=== PATIENT | male | born 1955 | race Caucasian/White ===

== ENCOUNTER 2018-11-01 12:50 | Day surgery (SDC) | payer BC ==
[~2018-11-01] VITALS: Ht 193 cm; Wt 96.1 kg
[~2018-11-01 12:50] MED LIST: NS 1,000 ML IV ONE; ROSU20TA4 PO; ZOLP5TAB PO
[2018-11-01] MEDS ORDERED: LIDOCAINE 2% INJ 100 MG/5 ML SDV (FOR ANES.) As Ordered ONE (13:50)
[2018-11-01] MEDS ORDERED: PROPOFOL 200 MG/20 ML VIAL As Ordered ONE ×2 (13:50→14:17)
--- NOTE | 2018-11-01 14:19 | ROOR ---
Patient Name: Curtis May Procedure Date: 11/01/2018 1:57 PM Date of : 1955 Age: 62 Room: [facility] Gender: Male Note Status: Finalized Procedure: Total Colonoscopy to Cecum + ileoscopy Indications: Screening for colorectal malignant neoplasm Providers: Nasir Valdez MD Referring MD: DEE TUBBS JR, MD Requesting Provider: Medicines: Monitored Anesthesia Care Complications: No immediate complications. Procedure: Pre-Anesthesia Assessment: - The heart rate, respiratory rate, oxygen saturations, blood pressure, adequacy of pulmonary ventilation, and response to care were monitored throughout the procedure. The Colonoscope was introduced through the anus and advanced to the cecum, identified by appendiceal orifice and ileocecal valve. The colonoscopy was performed without difficulty. The patient tolerated the procedure well. The quality of the bowel preparation was good. Findings: The perianal and digital rectal examinations were normal. Non-bleeding internal hemorrhoids were found during retroflexion. The hemorrhoids were small and Grade I (internal hemorrhoids that do not prolapse). No other significant abnormalities were identified in a careful examination of the remainder of the colon. The exam was otherwise without abnormality on direct and retroflexion views. The terminal ileum appeared normal. Impression: - Non-bleeding internal hemorrhoids. - The examination was otherwise normal on direct and retroflexion views. - The examined portion of the ileum was normal. - No specimens collected. - The exam was otherwise normal to the cecum. Recommendation: - Patient has a contact number available for emergencies. The signs and symptoms of potential delayed complications were discussed with the patient. Return to normal activities tomorrow. Written discharge instructions were provided to the patient. - High fiber diet. - Discharge patient to home. - Continue present medications. - Repeat colonoscopy in 10 years for screening purposes. - Return to referring physician. - The findings and recommendations were discussed with the patient's family. Nasir Valdez MD Nasir Valdez MD 11/01/2018 2:18:59 PM Electronically signed by Nasir Valdez MD Number of Addenda: 0 Note Initiated On: 11/01/2018 1:57 PM Estimated Blood Loss: Estimated blood loss: none.
[2018-11-01 14:40] VITALS: BP 109/60
== END 2018-11-01 14:49 | disposition home or self-care (01) ==
LOC: M OPP 12:50
PROVIDERS: ATTEND Internal Medicine Gastroenterology
DX: K64.0 First degree hemorrhoids (principal); Z12.11 Encounter for screening for malignant neoplasm of colon

== ENCOUNTER → 2019-01-18 | Outpatient (REF) | payer BC ==
[~2019-01-18] MED LIST changes: +CLIN1GEL3 TOP; +DOXY100T PO; +IBUP-1114 PO; -NS 1,000 ML IV ONE; -ROSU20TA4 PO; +ROSU20TA5 PO
[2019-01-18 17:26] LABS: INFLUENZA A AMPLIFICATION NEGATIVE (NEGATIVE); INFLUENZA B AMPLIFICATION NEGATIVE (NEGATIVE)
[2019-01-21 00:11] LABS: Lyme Disease IgG Ab 18 kDa Ban Absent (.); Lyme Disease IgG Ab 23 kDa Ban Absent (.); Lyme Disease IgG Ab 28 kDa Ban Present (.); Lyme Disease IgG Ab 30 kDa Ban Present (.); Lyme Disease IgG Ab 39 kDa Ban Absent (.); Lyme Disease IgG Ab 41 kDa Ban Present (.); Lyme Disease IgG Ab 45 kDa Ban Present (.); Lyme Disease IgG Ab 58 kDa Ban Absent (.); Lyme Disease IgG Ab 66 kDa Ban Absent (.); Lyme Disease IgG Ab 93 kDa Ban Absent (.); Lyme Disease IgG West Blot Int Negative (.); Lyme Disease IgG/IgM Antibodie 3.29 ISR (0.00-0.90); Lyme Disease IgM Ab 23 kDa Ban Absent (.); Lyme Disease IgM Ab 39 kDa Ban Absent (.); Lyme Disease IgM Ab 41 kDa Ban Absent (.); Lyme Disease IgM Ab Quantitati <0.80 index (0.00-0.79); Lyme Disease IgM West Blot Int Negative (.)
== END ==
LOC: M LAB REF 16:14
PROVIDERS: ATTEND Nurse Practitioner Family
DX: M25.50 Pain in unspecified joint (principal)

== ENCOUNTER 2019-01-20 14:17 | Inpatient (IN) | payer BC ==
[~2019-01-20] VITALS: Ht 193 cm; Wt 97.3 kg
[~2019-01-20 14:17] MED LIST changes: -CLIN1GEL3 TOP; -DOXY100T PO; -IBUP-1114 PO
[2019-01-20] MEDS ORDERED: IBUP-1114 PO (14:28)
[2019-01-20 15:01] LABS: VENOUS BASE EXCESS 2.1 (-2.0-2.0); VENOUS HCO3 26.1 MEQ/L (23.0-27.0); VENOUS O2 SATURATION 96.4 % (60.0-80.0); VENOUS PARTIAL PRESSURE CO2 38.7 mmHg (38.0-50.0); VENOUS PARTIAL PRESSURE O2 83.2 mmHg (30.0-50.0); VENOUS PH 7.446 UNITS (7.330-7.430); VENOUS STANDARD HCO3 26.3 MEQ/L; VENOUS TOTAL CO2 27.2 MEQ/L (24.0-28.0)
[2019-01-20 15:11] LABS: BASO # 0.1 10^3/uL (0.0-0.2); BASO % 0.3 % (0.0-1.0); EOS # 0.2 10^3/uL (0.0-0.50); HEMATOCRIT 43.8 % (42.0-52.0); HEMOGLOBIN 15.3 g/dl (13.5-17.5); LYMPH # 0.3 10^3/uL (1.5-4.5); LYMPH % 1.9 % (24.0-44.0); MEAN CORPUSCULAR HEMOGLOBIN 31.9 pg (27.0-33.0); MEAN CORPUSCULAR HGB CONC 34.9 g/dl (32.0-36.5); MEAN CORPUSCULAR VOLUME 91.4 fl (80.0-96.0); MONO # 0.9 10^3/uL (0.0-0.8); MONO % 5.5 % (0.0-5.0); NEUTROPHILS # 15.4 10^3/uL (1.8-7.7); NEUTROPHILS % 90.7 % (36.0-66.0); PLATELET COUNT, AUTOMATED 169 10^3/uL (150-450); RED BLOOD COUNT 4.79 10^6/uL (4.30-6.10); WHITE BLOOD COUNT 16.9 10^3/uL (4.0-10.0)
[2019-01-20] MEDS ORDERED: NS 1,000 ML IV ONE ×2 (15:15→15:30)
[2019-01-20 15:20] LABS: INR 1.16; PROTHROMBIN TIME 14.5 SECONDS (11.8-14.0)
[2019-01-20 15:21] LABS: PARTIAL THROMBOPLASTIN TIME 28.9 SECONDS (25.0-38.4)
[2019-01-20 15:28] LABS: ALBUMIN 3.6 GM/DL (3.2-5.2); ALT/SGPT 95 U/L (12-78); AMYLASE 13 U/L (25-115); BILIRUBIN,DIRECT 0.3 MG/DL (0.0-0.2); BILIRUBIN,TOTAL 0.9 MG/DL (0.2-1.0); BLOOD UREA NITROGEN 26 MG/DL (7-18); CALCIUM LEVEL 8.5 MG/DL (8.8-10.2); CARBON DIOXIDE LEVEL 26 MEQ/L (21-32); CHLORIDE LEVEL 101 MEQ/L (98-107); CK-MB VALUE MASS < 1.0 NG/ML (<3.6); CPK CREATINE PHOSPHOKINASE 33 U/L (39-308); CREATININE FOR GFR 1.01 MG/DL (0.70-1.30); GLOMERULAR FILTRATION RATE > 60.0 (>49); GLUCOSE, FASTING 135 MG/DL (70-100); MB/CK RELATIVE INDEX 3.03 (< OR =4); POTASSIUM SERUM 3.8 MEQ/L (3.5-5.1); SODIUM LEVEL 137 MEQ/L (136-145); TOTAL PROTEIN 6.5 GM/DL (6.4-8.2); TROPONIN I < 0.02 NG/ML (< 0.10)
[2019-01-20] MEDS ORDERED: cefTRIAXone SOD 2 GM in D5W MINI-BAG PLUS 50 ML IV ONE (15:30)
[2019-01-20] MEDS ORDERED: CLIN1GEL3 TOP (15:39)
--- NOTE | 2019-01-20 15:52 | REP ---
CHEST, SINGLE VIEW: There is no evidence of acute infiltrate. No pleural effusion is seen. The heart is normal in size. The mediastinal silhouette is unremarkable. The visualized osseous structures are intact. IMPRESSION: No acute pulmonary disease. Electronically Signed by Mario Alberto Dugan MD 01/21/2019 09:27 A
[2019-01-20] MEDS ORDERED: ONDANSETRON 4MG/2ML VIAL (J2405) IV ONE (17:45)
[2019-01-20] MEDS ORDERED: zolPIDEM TARTRATE 5 MG TAB PO PRN (18:15)
--- NOTE | 2019-01-20 18:22 | HPEPDOC ---
General Date of Admission 01/20/19 Date of Service: Jan 20, 2019 Chief Complaint The patient is a 63-year-old male admitted with a reason for visit of Vomiting, Blood Pressure Problem. History of Present Illness 63-year-old male with past medical history significant for dyslipidemia presented to the ER with a chief complaint of intractable nausea and vomiting over the last 3 days. He states that during this time he has been unable to keep any food down due to the nausea. Denies eating or drinking any foreign foods, sick contacts, or recent travel. He also endorses associated subjective fevers and chills. He also states that he has been working in the [employer], but has done so for many years without incident, and denies noticing any recent tick bites. Also of note, the patient states that he has had a generalized non-itchy non- painful body rash that erupted around the same time. He endorses generalized body aches but denied any headaches or neck aches on admission. Home Medications Scheduled Rosuvastatin Calcium (Rosuvastatin Calcium) 20 Mg Tab, 10 MG PO QHS, (Reported) Scheduled PRN Clindamycin Phosphate (Clindagel) 75 Ml Gel.daily, 1 APLCT TOP BID PRN for HEAT RASH, (Reported) APPLY TO LEGS Ibuprofen (Ibuprofen) 400 Mg Tablet, 400 MG PO Q4H PRN for PAIN, (Reported) Zolpidem Tartrate (Zolpidem Tartrate) 5 Mg Tab, 5 MG PO QHS PRN for SLEEP, (Reported) Allergies Coded Allergies: No Known Allergies (Unverified , 10/25/18) Past Medical History Medical History As noted in HPI. Surgical History Right Achilles tendon repair. Left rotator cuff repair. Social History * Smoker: Denies Alcohol: occationally Drugs: denies Review of Systems Other systems 10 point review of systems negative unless otherwise specified in HPI. Physical Examination General Exam: Positive: Alert, Cooperative, No Acute Distress ENT Exam: Positive: Atraumatic; Negative: Mucous membr. moist/pink (dry mucous membranes) Neck Exam: Negative: JVD Chest Exam: Positive: Clear to auscultation, Normal air movement Heart Exam: Positive: Rate Normal, Normal S1, Normal S2 Abdomen Exam: Positive: Soft; Negative: Tenderness Extremity Exam: Negative: Tenderness, Swelling Skin Exam: Positive: Rash (generalized papular, non-itchy, not painful rash noted on trunk, extremities, arms, and back) Psych Exam: Positive: Oriented x 3 Vital Signs Vital Signs Date Time Temp Pulse Resp B/P (MAP) Pulse Ox O2 Delivery O2 Flow Rate FiO2 01/20/19 17:02 01/20/19 14:18 97.1 91 20 91 Room Air Laboratory Data Labs 24H Laboratory Tests 2 01/20/19 14:42: Immature Granulocyte % (Auto) 0.6, White Blood Count 16.9H, Red Blood Count 4 .79, Hemoglobin 15.3, Hematocrit 43.8, Mean Corpuscular Volume 91.4, Mean Corpuscular Hemoglobin 31.9, Mean Corpuscular Hemoglobin Concent 34.9, Red Cell Distribution Width 12.6, Platelet Count 169, Neutrophils (%) (Auto) 90.7H, Lymphocytes (%) (Auto) 1.9L, Monocytes (%) (Auto) 5.5H, Eosinophils (%) (Auto) 1.0, Basophils (%) (Auto) 0.3, Neutrophils # (Auto) 15.4H, Lymphocytes # (Auto) 0.3L, Monocytes # (Auto) 0.9H, Eosinophils # (Auto) 0.2, Basophils # (Auto) 0.1, Nucleated Red Blood Cells % (auto) 0.0, Prothrombin Time 14.5H, Prothromb Time International Ratio 1.16, Activated Partial Thromboplast Time 28.9, Blood Gas Bicarbonate Standard 26.3, Venous Blood pH 7.446H, Venous Blood Partial Pressure CO2 38.7, Venous Blood Partial Pressure O2 83.2H, Venous Blood Total Carbon Dioxide 27.2, Venous Blood HCO3 26.1, Venous Blood Oxygen Saturation 96.4H, Venous Blood Base Excess 2.1H, Anion Gap 10, Glomerular Filtration Rate > 60.0, Lactic Acid Level 1.4, Calcium Level 8.5L, Aspartate Amino Transf (AST/SGOT) 7, Alanine Aminotransferase (ALT/SGPT) 95H, Alkaline Phosphatase 119H, Total Bilirubin 0.9, Direct Bilirubin 0.3H, Total Creatine Kinase 33L, Creatine Kinase MB < 1.0, Creatine Kinase MB Relative Index 3.03, Troponin I < 0.02, C-Reactive Protein, Quantitative 18.30H, Total Protein 6.5, Albumin 3.6, Albumin/Globulin Ratio 1.24, Amylase Level 13L CBC/BMP Laboratory Tests 01/20/19 14:42 Red Blood Count 4.79, Mean Corpuscular Volume 91.4, Mean Corpuscular Hemoglobin 31.9, Mean Corpuscular Hemoglobin Concent 34.9, Red Cell Distribution Width 12.6, Neutrophils (%) (Auto) 90.7 H, Lymphocytes (%) (Auto) 1.9 L, Monocytes (%) (Auto) 5.5 H, Eosinophils (%) (Auto) 1.0, Basophils (%) (Auto) 0.3, Neutrophils # (Auto) 15.4 H, Lymphocytes # (Auto) 0.3 L, Monocytes # (Auto) 0.9 H, Eosinophils # (Auto) 0.2, Basophils # (Auto) 0.1 Microbiology Microbiology 01/20/19 Blood Culture, Received Pending 01/20/19 Blood Culture, Received Pending Plan / VTE VTE Prophylaxis Ordered?: Yes Plan Plan Intractable Nausea anmd Vomiting possibly 2/2 ?Viral Gastroenteritis CT Abd/Pel ordered IVF Hydration ordered Zofran for nausea We will keep on clear liquid diet for now We will cont to monitor Generalized Maculopapular Body Rash Possibly of viral prodrome? We will continue to monitor at this time, and investigate further. Hx of Dyslipidemia Cont Statin Hx of Insomnia Zolpidem prn DVT Prophylaxis Lovenox XI RANDLE MD Jan 20, 2019 18:22
--- NOTE | 2019-01-20 18:45 | REPVR ---
EXAM: CT Abdomen and Pelvis Without Contrast EXAM DATE/TIME: 01/20/2019 6:10 PM CLINICAL HISTORY: 63 years old, male; Nausea and vomiting; Additional info: Nausea/vomiting TECHNIQUE: Imaging protocol: Axial computed tomography images of the abdomen and pelvis without contrast. Coronal and sagittal reformatted images were created and reviewed. Radiation optimization: All CT scans at this facility use at least one of these dose optimization techniques: automated exposure control; mA and/or kV adjustment per patient size (includes targeted exams where dose is matched to clinical indication); or iterative reconstruction. COMPARISON: No relevant prior studies available. FINDINGS: Lungs: There is bibasilar compressive atelectasis. Liver: There are cysts in the liver measuring up to 2 cm. No complex features demonstrated. Gallbladder and bile ducts: Normal. No calcified stones. No ductal dilation. Pancreas: Normal. No ductal dilation. Spleen: There is mild splenomegaly with a maximum span of 13 centimeters. No focal abnormalities demonstrated. Adrenals: Normal. No mass. Kidneys and ureters: Subcentimeter nonobstructing calculus upper pole left kidney. Peripelvic cysts both kidneys. Mild perinephric inflammatory changes on the left. Clinical correlation to exclude pyelonephritis suggested. Stomach and bowel: Normal. No obstruction. No mucosal thickening. Appendix: No evidence of appendicitis. Intraperitoneal space: Normal. No free air. No significant fluid collection. Vasculature: The aorta demonstrates mild atherosclerotic calcification. Lymph nodes: Normal. No enlarged lymph nodes. Bladder: Unremarkable as visualized. Reproductive: The prostate gland demonstrates moderate hyperplasia. Bones/joints: No acute fracture. No dislocation. Soft tissues: Unremarkable. IMPRESSION: 1. There is mild splenomegaly with a maximum span of 13 centimeters. No focal abnormalities demonstrated. 2. Moderate prostatic hyperplasia. 3. Mild perinephric inflammatory changes on the left. Clinical correlation to exclude pyelonephritis suggested. COMMENT: Consistent with the [place] [employer]'s Incidental Findings Committee Report (J Am Doc Radiol 2010): Unless the patient's specific circumstances suggest otherwise, any liver lesion 0.5 cm or less, any cystic kidney lesion less than 1.0 cm, and/or any adrenal lesion 1.0 cm or less not otherwise characterized in this report as possessing suspicious or indeterminate imaging features is/are highly likely to be benign and do not require follow-up imaging or biopsy. Electronically signed by: Lam Herring On 01/20/2019 18:44:55 PM
[2019-01-20] MEDS: NS 1,000 ML IV SCH (18:47)
[2019-01-20] MEDS: ROSUVASTATIN 10 MG TAB (CRESTOR) PO SCH (21:17)
[2019-01-20] MEDS: ACETAMINOPHEN TAB 650MG DOSE (2X325MG) PO PRN (22:08)
[2019-01-21] MEDS ORDERED: METAL LOCK LOOP XX ONE (02:40)
[2019-01-21] MEDS: ACETAMINOPHEN TAB 650MG DOSE (2X325MG) PO PRN ×4 (03:24→20:09)
[2019-01-21] MEDS: NS 1,000 ML IV SCH ×2 (04:02→16:23)
[2019-01-21 06:55] LABS: HEMATOCRIT 38.2 % (42.0-52.0); MEAN CORPUSCULAR HEMOGLOBIN 31.9 pg (27.0-33.0); MEAN CORPUSCULAR HGB CONC 33.8 g/dl (32.0-36.5); MEAN CORPUSCULAR VOLUME 94.6 fl (80.0-96.0); PLATELET COUNT, AUTOMATED 154 10^3/uL (150-450); RED BLOOD COUNT 4.04 10^6/uL (4.30-6.10); WHITE BLOOD COUNT 11.1 10^3/uL (4.0-10.0)
[2019-01-21 07:00] LABS: HEMOGLOBIN 12.9 g/dl (13.5-17.5)
[2019-01-21 07:19] LABS: ALBUMIN 2.6 GM/DL (3.2-5.2); ALT/SGPT 61 U/L (12-78); BILIRUBIN,TOTAL 0.5 MG/DL (0.2-1.0); BLOOD UREA NITROGEN 20 MG/DL (7-18); CALCIUM LEVEL 8.1 MG/DL (8.8-10.2); CARBON DIOXIDE LEVEL 29 MEQ/L (21-32); CHLORIDE LEVEL 104 MEQ/L (98-107); CREATININE FOR GFR 0.83 MG/DL (0.70-1.30); GLOMERULAR FILTRATION RATE > 60.0 (>49); GLUCOSE, FASTING 117 MG/DL (70-100); MAGNESIUM LEVEL 2.1 MG/DL (1.8-2.4); POTASSIUM SERUM 3.9 MEQ/L (3.5-5.1); SODIUM LEVEL 138 MEQ/L (136-145); TOTAL PROTEIN 5.2 GM/DL (6.4-8.2)
[2019-01-21 09:00] VITALS: BP 108/62
[2019-01-21] MEDS: PANTOPRAZOLE 40MG TAB (PROTONIX) PO SCH (09:00)
[2019-01-21] MEDS: ENOXAPARIN 40 MG/0.4 ML SYRINGE (J1650) SC SCH (09:43)
[2019-01-21 10:16] LABS: APPEARANCE, URINE HAZY (CLEAR); BACTERIA, URINE AUTO NEGATIVE (NEGATIVE); BILIRUBIN, URINE AUTO NEGATIVE (NEGATIVE); BLOOD, URINE BLOOD NEGATIVE (NEGATIVE); COLOR, URINE AMBER (YELLOW); GLUCOSE, URINE (UA) AUTO NEGATIVE (NEGATIVE); KETONE, URINE AUTO 1+ mg/dL (NEGATIVE); LEUKOCYTE ESTERASE, URINE AUTO NEGATIVE (NEGATIVE); MUCUS, URINE SMALL (NEGATIVE); NITRITE, URINE AUTO NEGATIVE (NEGATIVE); PROTEIN, URINE AUTO 1+ mg/dL (NEGATIVE); RBC, URINE AUTO 5 /HPF (0-3); SPECIFIC GRAVITY URINE AUTO 1.032 (1.002-1.035); SQUAMOUS EPITHELIAL CELL UR AU 0 /HPF (0-6); WBC, URINE AUTO 5 /HPF (0-3)
[2019-01-21 12:00] VITALS: BP 103/60
[2019-01-21] MEDS: ONDANSETRON 4MG/2ML VIAL (J2405) IV PRN ×2 (13:04→19:03)
--- NOTE | 2019-01-21 13:53 | REP ---
CT HEAD WITHOUT CONTRAST: HISTORY: Headache. There is no intraparenchymal hemorrhage, mass, or midline shift. The ventricular system is normal in appearance. There is no extracerebral collection. The visualized sinuses are clear. IMPRESSION: There is no intracranial lesion. Electronically Signed by Raffaele Combs MD 01/21/2019 02:03 P
[2019-01-21 14:00] VITALS: BP_SYST 103; BP_SYST 164; BP_DIAS 60; BP_DIAS 83
[2019-01-21 14:11] LABS: MONO SCRN NEGATIVE (NEGATIVE)
[2019-01-21] MEDS ORDERED: LIDOCAINE 1% MDV 20ML VIAL As Ordered ONE (14:13)
[2019-01-21] MEDS ORDERED: LIDOCAINE 1% MDV 20ML VIAL SC ONE ×2 (14:15→14:30)
--- NOTE | 2019-01-21 15:07 | IPNPDOC ---
Subjective Date Seen The patient was seen on 01/21/19. Subjective Chief Complaint/HPI Patient seen and examined at the bedside. Reports that he has been having headaches and neck aches this morning as well as continued nausea and chills. The patient also endorses generalized weakness and lethargy. States that he was able to tolerate some clear liquids overnight and this morning. Objective Physical Examination General Exam: Positive: Alert, Cooperative, No Acute Distress ENT Exam: Positive: Atraumatic; Negative: Mucous membr. moist/pink (dry mucous membranes) Neck Exam: Negative: JVD Chest Exam: Positive: Clear to auscultation, Normal air movement Heart Exam: Positive: Rate Normal, Normal S1, Normal S2 Abdomen Exam: Positive: Soft; Negative: Tenderness Extremity Exam: Negative: Tenderness, Swelling Skin Exam: Positive: Rash (generalized maculopapular, non-itchy, not painful rash noted on trunk, extremities, arms, and back) Psych Exam: Positive: Oriented x 3 Assessment /Plan Plan/VTE VTE Prophylaxis Ordered?: Yes Plan Fevers, Headache, and Neck Pain possibly 2/2 Meningitis Patient endorsed new onset neck pains this morning-->Ct Head ordered, negative for any acute findings Lumbar Puncture ordered to r/o meningitis Blood cultures from admission pending Respiratory panel, Monoscreen,Strep-throat studies pending, Lyme Screen, Ehrlichia, Babesia, and Arbovirus studies ordered The patient's WBC and CRP markers are improved from overnight, however the patient is febrile this morning Rn Transition support appreciated for Lumbar Tap---Dr. Timmons was able to discuss the case with Dr. Elder of ID via telephone, and we will follow up with the aforementioned work up that was recommended, and start the patient on Rocephin and Dexamethasone for now. We will consider adding Vanco/Ampicillin depending on CSF results. We will follow up with CSF results and manage accordingly. Generalized Maculopapular Body Rash possibly 2/2 Above We will continue to monitor at this time, and curtail therapy based on above results Hx of Dyslipidemia Cont Statin Hx of Insomnia Zolpidem prn DVT Prophylaxis Lovenox SC VS, I&O, 24H, Fishbone Vital Signs/I&O Vital Signs Date Time Temp Pulse Resp B/P (MAP) Pulse Ox O2 Delivery O2 Flow Rate FiO2 01/21/19 14:00 100.1 86 18 103/60 (74) 92 01/21/19 07:45 Room Air I&O- Last 24 Hours up to 6 AM 01/21/19 06:00 Intake Total 4000 ml Output Total 0 ml Balance 4000 ml Laboratory Data 24H LABS Laboratory Tests 2 01/21/19 06:28: Nucleated Red Blood Cells % (auto) 0.0, Anion Gap 5L, Glomerular Filtration Rate > 60.0, Blood Urea Nitrogen 20H, Creatinine 0.83, Sodium Level 138, Potassium Level 3.9, Chloride Level 104, Carbon Dioxide Level 29, Calcium Level 8.1L, Aspartate Amino Transf (AST/SGOT) 10, Alanine Aminotransferase (ALT/SGPT) 61, Alkaline Phosphatase 77, Total Bilirubin 0.5, Total Protein 5.2L, Albumin 2.6#L, Magnesium Level 2.1, C-Reactive Protein, Quantitative 12.00H, Albumin/Globulin Ratio 1.00 01/21/19 09:45: Urine Appearance HAZY, Urine Color ROSA, Urine pH 5.0, Urine Specific Butler 1.032, Urine Protein 1+H, Urine Glucose (UA) NEGATIVE, Urine Ketones 1+H, Urine Urobilinogen 4.0H, Urine Bilirubin NEGATIVE, Urine Leukocyte Esterase NEGATIVE, Urine Blood NEGATIVE, Urine Nitrite NEGATIVE, Urine WBC (Auto) 5H, Urine RBC (Auto) 5H, Urine Hyaline Casts (Auto) 0, Urine Bacteria (Auto) NEGATIVE, Urine Squamous Epithelial Cells 0, Urine Mucus (Auto) SMALL, Urine Sperm (Auto) 01/21/19 13:16: Monoscreen NEGATIVE CBC/BMP Laboratory Tests 01/21/19 06:28 Red Blood Count 4.04 L, Mean Corpuscular Volume 94.6, Mean Corpuscular Hemoglobin 31.9, Mean Corpuscular Hemoglobin Concent 33.8, Red Cell Distribution Width 12.5, Calcium Level 8.1 L, Aspartate Amino Transf (AST/SGOT) 10, Alanine Aminotransferase (ALT/SGPT) 61, Alkaline Phosphatase 77, Total Bilirubin 0.5, Total Protein 5.2 L, Albumin 2.6 #L Microbiology Microbiology 01/20/19 Blood Culture, Received Pending 01/20/19 Blood Culture - Preliminary, Resulted No growth after 24 hours . All specim... 01/21/19 Respiratory Virus Panel (PCR) (AYDIN), Received Pending 01/20/19 Group A Streptococcus Screen (AYDIN) - Final, Complete 01/21/19 Urine Culture, Received Pending XI PRETTY MD Jan 21, 2019 15:07
[2019-01-21 15:38] LABS: CSF TUBE# GLU TUBE 2; CSF TUBE# TP TUBE 2; GLUCOSE CSF 60 MG/DL (40-75); TOTAL PROTEIN,CSF 34 MG/DL (15-45)
[2019-01-21 15:40] LABS: APPEARANCE, CSF CLEAR (CLEAR); COLOR, CSF COLORLESS (COLORLESS); CSF TUBE# CELL CNT TUBE 1; CSF TUBE# CELL CNT TUBE 4
[2019-01-21] MEDS: cefTRIAXone SOD 2 GM in D5W MINI-BAG PLUS 50 ML IV SCH (16:19)
[2019-01-21] MEDS ORDERED: KETOROLAC 30 MG/ML VIAL (J1885) IV ONE (19:00)
[2019-01-21] MEDS: dexameTHASONE 20 MG/5 ML VIAL (J1100) IV SCH (19:02)
--- NOTE | 2019-01-21 20:01 | CR ---
DATE OF CONSULTATION: 01/21/2019 HISTORY OF PRESENT ILLNESS: The patient is a 63-year-old male with a past medical history of hyperlipidemia, history of previous Lyme disease who presented to the emergency department (ED) with complaints of fevers, myalgias and nausea and vomiting for the past three days. The patient reported his symptoms initially started with generalized myalgias, headaches and neck stiffness. He was noted to have fevers with a maximum temperature (T-max) at home of 101. The patient then noticed development of a diffuse erythematous maculopapular rash which was nonpruritic. The patient then started developing nausea, vomiting, and had decreased oral intake. He denied any abdominal pain during this and has not had any diarrhea. He did not notice any chest pain. No shortness of breath or coughing initially; however, after being admitted to the hospital, he has started to have an occasional nonproductive cough which is worse with deep inspiration. The patient denied any recent travel or sick contacts. He does frequently work outdoors but denies noticing any recent tick bites. He does have a previous history of Lyme disease, however, which was reportedly treated. The patient does also frequently swim in [facility] and he does have a dock with various plants and bushes around. He also will fish frequently and will occasionally injury his hands/fingers on the fish. He denies noticing any recent injury except for a scabbed abrasion in his right lower extremity with some mild erythema around it. He otherwise denies any other new lesions besides the rash. The patient also denies any recent contact with any rodents or other wildlife such as deer. The patient does not have any birds but does have a dog as a pet. PAST MEDICAL AND SURGICAL HISTORY: 1. Hyperlipidemia. 2. Right Achilles tendon repair. 3. Left rotator cuff repair. 4. Lyme disease, status post treatment. HOME MEDICATIONS: Rosuvastatin, clindamycin as needed for heat rash, ibuprofen as needed for fever, Zolpidem as needed for insomnia. ALLERGIES: No known allergies. SOCIAL HISTORY: Denies a history of tobacco use. Drinks alcohol occasionally. Denies history of drug use. PHYSICAL EXAMINATION: Maximum temperature (T-max) 100.1, pulse 86, respirations 18, blood pressure 103/60, oxygen saturation 92% on room air. INTAKE: 4 liters normal saline bolus. GENERAL: The patient is a well-nourished, well-developed male lying in bed, in no acute distress, is awake, alert and oriented times three, and responding to questions appropriately. HEENT: Normocephalic, atraumatic. Mucous membranes are moist. No oral lesions noted. NECK: Supple. No palpable adenopathy. Trachea is midline. CARDIOVASCULAR: Regular rate and rhythm. Normal S1, S2. No murmurs auscultated. LUNGS: Crackles at the bases bilaterally. No wheezes or rhonchi. ABDOMEN: Soft, nontender, nondistended. Normoactive bowel sounds. LOWER EXTREMITIES: There is no lower extremity edema noted bilaterally. Peripheral pulses are palpable. Negative Brudzinski and Kernig sign. SKIN: Generalized maculopapular rash noted on chest, back and the extremities. No rash noted on the palms. The rash is nonpruritic. LABORATORY DATA: WBC of 11.1, hemoglobin 12.9, platelets 154. Chemistry: Sodium is 138, potassium 3.9, chloride 104, bicarbonate 29, BUN 20, creatinine 0.83, glucose is 117, lactic acid is 1.7. Amylase is within normal limits. CRP is elevated but trending down at 12.0. AST ant ALT within normal limits, alkaline phosphatase trending down to 77, INR 1.16. VBG showed a pH of 7.446. MICROBIOLOGY: UA negative. Cultures are pending. IMAGING STUDIES: Chest x-ray showed increased interstitial markings at the bases. No focal opacities or infiltrates. CT abdomen and pelvis shows at the lungs, there are some dependent changes in the lung rice bilaterally with atelectasis and possible mild ground-glass opacity in the lower lobes bilaterally. There is some faint nodular tree and bud opacities in the lingula in the right middle lobe. In the abdomen, there are cysts in the liver measuring up to 2 cm. No complex features noted. There is mild splenomegaly and a moderate hyperstatic hyperplasia. There is some mild perinephric inflammation changes in the left kidney. CT head showed no intraparenchymal hemorrhage, mass or midline shift. The ventricular system appeared normal. ASSESSMENT AND PLAN: Mr. May is a 63-year male with a history of hyperlipidemia, previous history of Lyme disease status post treatment who presented with fevers, myalgia, nausea, vomiting, and a new maculopapular rash. The patient had reported headaches as well as neck pain during all of this and was noted to have a leukocytosis on admission. The patient's urinalysis (UA) was negative for infection. His chest x-ray showed some mild increased interstitial markings at the bases but no focal opacities to suggest pneumonia. His CT abdomen and pelvis also did not show any focal findings to suggest a gastrointestinal (GI) source of infection. Therefore given his complaints of headache and some neck stiffness as well as with the diffuse rash, there is some concern for meningitis, possibly viral or arthropod-borne encephalitis. Bacterial meningitis is less likely as on examination he did not have severe nuchal rigidity, but only possible meningismus. Other possible differentials include arthropod-borne illnesses such as erlichiosis, babesiosis, rickettsia. The patient's rash is not entirely consistent with [place] spotted fever as it is not involving the palms or the soles currently but that is still a possibility for possible tick-borne disease. The patient was consented for a lumbar puncture. The patient was started on empiric antibiotics for a suspicion of possible bacterial meningitis, although less likely with Rocephin and dexamethasone pending the results of the cerebrospinal fluid (CSF) fluid cell count. If it appears more likely for bacterial meningitis would add vancomycin and ampicillin. If it appears to be possible viral meningitis would consider adding empiric therapy with acyclovir while pending the viral studies from the CSF. We will check a respiratory panel and Streptococcus throat studies. We will also check Lyme screen, erlishiosis, babesiosis, and arbovirus. We will followup the results of the viral meningitis panel as well. Follow- up blood cultures. Would continue with IV fluid hydration and medications for nausea as needed. The patient was noted to have some atelectasis on imaging as well as on examination. Would give incentive spirometer and encourage its usage. Deep vein thrombosis (DVT) prophylaxis with Lovenox. Full code. Total critical care time spent, not including procedures, approximately one hour and 20 minutes. Please do not hesitate to call if any further questions or concerns. MTDD
[2019-01-21] MEDS: ROSUVASTATIN 10 MG TAB (CRESTOR) PO SCH (20:09)
[2019-01-21 22:00] VITALS: BP 121/59
--- NOTE | 2019-01-21 23:16 | RO ---
DATE OF PROCEDURE: 01/21/2019 INDICATION Suspected meningitis. PREPROCEDURE DIAGNOSIS: Sepsis. POSTPROCEDURE DIAGNOSIS: Sepsis. PROCEDURE: Lumbar puncture. SURGEON: Preethi Timmons MD CONSENT: Consent was obtained from the patient prior to the procedure. Indication, risks and benefits were explained at length. DESCRIPTION OF PROCEDURE: A time-out was performed. Sterile technique was maintained throughout the procedure, including face mask, sterile gloves and sterile gown. The patient was placed in a left lateral decubitus position with a curl. The area was cleansed with iodine and draped in the usual sterile fashion. Anesthesia which was achieved with 1% lidocaine. A 20-gauge 3.5-inch spinal needle was placed in the L4-5 lumbar interspace. On the first attempt, clear-colored cerebrospinal fluid was obtained. The opening pressure was 23 cm of water. Cerebrospinal fluid (CSF) was collected into four tubes and additional 3 mL was collected into a sterile specimen container. These were sent for the usual tests, including the sterile specimen container to be held for further analysis if needed. A sterile Band-Aid was placed over the puncture site. The patient had no immediate complications and tolerated the procedure well. Estimated blood loss was less than 1 mL. MTDD
[2019-01-22] MEDS: ONDANSETRON 4MG/2ML VIAL (J2405) IV PRN (01:17)
[2019-01-22] MEDS: dexameTHASONE 20 MG/5 ML VIAL (J1100) IV SCH ×2 (01:18→06:40)
[2019-01-22] MEDS: ACETAMINOPHEN TAB 650MG DOSE (2X325MG) PO PRN ×4 (01:19→21:59)
[2019-01-22] MEDS: NS 1,000 ML IV SCH ×4 (01:19→19:03)
[2019-01-22] MEDS: cefTRIAXone SOD 2 GM in D5W MINI-BAG PLUS 50 ML IV SCH (04:50)
[2019-01-22 06:00] VITALS: BP 112/59
[2019-01-22 06:49] LABS: HEMATOCRIT 38.4 % (42.0-52.0); HEMOGLOBIN 12.9 g/dl (13.5-17.5); MEAN CORPUSCULAR HEMOGLOBIN 31.8 pg (27.0-33.0); MEAN CORPUSCULAR HGB CONC 33.6 g/dl (32.0-36.5); MEAN CORPUSCULAR VOLUME 94.6 fl (80.0-96.0); PLATELET COUNT, AUTOMATED 167 10^3/uL (150-450); RED BLOOD COUNT 4.06 10^6/uL (4.30-6.10); WHITE BLOOD COUNT 6.9 10^3/uL (4.0-10.0)
[2019-01-22 07:05] LABS: ALBUMIN 2.5 GM/DL (3.2-5.2); ALT/SGPT 48 U/L (12-78); BILIRUBIN,TOTAL 0.3 MG/DL (0.2-1.0); BLOOD UREA NITROGEN 18 MG/DL (7-18); CALCIUM LEVEL 8.1 MG/DL (8.8-10.2); CARBON DIOXIDE LEVEL 28 MEQ/L (21-32); CHLORIDE LEVEL 107 MEQ/L (98-107); CREATININE FOR GFR 0.75 MG/DL (0.70-1.30); GLOMERULAR FILTRATION RATE > 60.0 (>49); GLUCOSE, FASTING 149 MG/DL (70-100); MAGNESIUM LEVEL 2.2 MG/DL (1.8-2.4); SODIUM LEVEL 141 MEQ/L (136-145); TOTAL PROTEIN 5.6 GM/DL (6.4-8.2)
--- NOTE | 2019-01-22 07:46 | ECGEPIP ---
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
[2019-01-22] MEDS: ENOXAPARIN 40 MG/0.4 ML SYRINGE (J1650) SC SCH (08:42)
[2019-01-22] MEDS: PANTOPRAZOLE 40MG TAB (PROTONIX) PO SCH (08:42)
[2019-01-22] MEDS: DOXYCYCLINE HYCLATE 100 MG TAB PO SCH ×2 (12:09→21:36)
[2019-01-22 14:00] VITALS: BP 101/72
--- NOTE | 2019-01-22 14:05 | IPNPDOC ---
Subjective Date Seen The patient was seen on 01/22/19. Subjective Chief Complaint/HPI Patient seen and examined at the bedside. Reports that he is feeling much better this morning, and denies any acute complaints of nausea, vomiting, or abdominal pain. Objective Physical Examination General Exam: Positive: Alert, Cooperative, No Acute Distress ENT Exam: Positive: Atraumatic, Mucous membr. moist/pink Neck Exam: Negative: JVD Chest Exam: Positive: Clear to auscultation, Normal air movement Heart Exam: Positive: Rate Normal, Normal S1, Normal S2 Abdomen Exam: Positive: Soft; Negative: Tenderness Extremity Exam: Negative: Tenderness, Swelling Skin Exam: Positive: Rash (generalized maculopapular, non-itchy, not painful rash noted on trunk, extremities, arms, and back---this does appear to be improving) Psych Exam: Positive: Oriented x 3 Assessment /Plan Plan/VTE VTE Prophylaxis Ordered?: Yes Plan Fevers, Headache, and Neck Pain possibly 2/2 Viral Etiology, Tick borne illness Lumbar Puncture negative for meningitis Blood cultures from admission unrevealing Respiratory panel, Monoscreen,Strep-throat studies negative Lyme Screen, Ehrlichia, Babesia, and Arbovirus studies ordered The patient's WBC and CRP markers are improved from overnight, and the patient is afebrile this morning He endorses that he is feeling much better this morning We will D/C Rocephin and Decadron, we will transition the patient to PO Doxycycline to empirically treat possible tick borne illness Generalized Maculopapular Body Rash possibly 2/2 Above This is improved, we will cont to monitor Hx of Dyslipidemia Cont Statin Hx of Insomnia Zolpidem prn DVT Prophylaxis Lovenox SC Dispo--anticipate D/C in 24-48hrs pending continued clinical improvement. VS, I&O, 24H, Hectorbone Vital Signs/I&O Vital Signs Date Time Temp Pulse Resp B/P (MAP) Pulse Ox O2 Delivery O2 Flow Rate FiO2 01/22/19 06:00 98.1 66 19 112/59 (76) 98 01/21/19 07:45 Room Air I&O- Last 24 Hours up to 6 AM 01/22/19 05:59 Intake Total 2345 ml Balance 2345 ml Laboratory Data 24H LABS Laboratory Tests 2 01/21/19 14:59: CSF Appearance CLEAR, CSF Color COLORLESS, CSF WBC (Auto) 1, CSF RBC (Auto) < 2, CSF Glucose (Tube 1) TUBE 2, CSF Total Protein (Tube 1) TUBE 2, CSF Cell Count Tube # TUBE 4, CSF Polynuclear WBCs (%) , CSF Glucose 60, CSF Total Protein 34 01/22/19 06:09: Nucleated Red Blood Cells % (auto) 0.0, Anion Gap 6L, Glomerular Filtration Rate > 60.0, Blood Urea Nitrogen 18, Creatinine 0.75, Sodium Level 141, Potassium Level 4.0, Chloride Level 107, Carbon Dioxide Level 28, Calcium Level 8.1L, Aspartate Amino Transf (AST/SGOT) < 3L, Alanine Aminotransferase (ALT/SGPT) 48, Alkaline Phosphatase 69, Total Bilirubin 0.3, Total Protein 5.6L, Albumin 2.5L, Magnesium Level 2.2, C-Reactive Protein, Quantitative 10.90H, Albumin/Globulin Ratio 0.81L CBC/BMP Laboratory Tests 01/22/19 06:09 Red Blood Count 4.06 L, Mean Corpuscular Volume 94.6, Mean Corpuscular Hemogl obin 31.8, Mean Corpuscular Hemoglobin Concent 33.6, Red Cell Distribution Width 12.4, Calcium Level 8.1 L, Aspartate Amino Transf (AST/SGOT) < 3 L, Alanine Aminotransferase (ALT/SGPT) 48, Alkaline Phosphatase 69, Total Bilirubin 0.3, Total Protein 5.6 L, Albumin 2.5 L Microbiology Microbiology 01/20/19 Blood Culture - Preliminary, Resulted No growth after 24 hours . All specim... 01/20/19 Blood Culture - Preliminary, Resulted No growth after 24 hours . All specim... 01/21/19 Gram Stain - Final, Resulted 01/21/19 CSF Culture, Resulted Pending 01/21/19 - Final, Complete 01/21/19 Respiratory Virus Panel (PCR) ([facility]) - Final, Complete 01/20/19 Group A Streptococcus Screen ([facility]) - Final, Complete 01/21/19 Urine Culture - Final, Complete XI PRETTY MD Jan 22, 2019 14:05
[2019-01-22] MEDS: ROSUVASTATIN 10 MG TAB (CRESTOR) PO SCH (21:36)
[2019-01-22 22:00] VITALS: BP 118/60
[2019-01-23 06:00] VITALS: BP 105/55
[2019-01-23 06:07] LABS: HEMATOCRIT 34.1 % (42.0-52.0); HEMOGLOBIN 11.6 g/dl (13.5-17.5); MEAN CORPUSCULAR VOLUME 93.9 fl (80.0-96.0); PLATELET COUNT, AUTOMATED 186 10^3/uL (150-450); RED BLOOD COUNT 3.63 10^6/uL (4.30-6.10); WHITE BLOOD COUNT 13.2 10^3/uL (4.0-10.0)
[2019-01-23 06:29] LABS: ALBUMIN 2.3 GM/DL (3.2-5.2); ALT/SGPT 45 U/L (12-78); BILIRUBIN,TOTAL 0.2 MG/DL (0.2-1.0); BLOOD UREA NITROGEN 18 MG/DL (7-18); CALCIUM LEVEL 7.9 MG/DL (8.8-10.2); CARBON DIOXIDE LEVEL 28 MEQ/L (21-32); CHLORIDE LEVEL 109 MEQ/L (98-107); GLOMERULAR FILTRATION RATE > 60.0 (>49); GLUCOSE, FASTING 118 MG/DL (70-100); POTASSIUM SERUM 3.7 MEQ/L (3.5-5.1); SODIUM LEVEL 143 MEQ/L (136-145); TOTAL PROTEIN 5.4 GM/DL (6.4-8.2)
[2019-01-23] MEDS: ENOXAPARIN 40 MG/0.4 ML SYRINGE (J1650) SC SCH (08:06)
[2019-01-23] MEDS: ACETAMINOPHEN TAB 650MG DOSE (2X325MG) PO PRN ×2 (08:06→20:35)
[2019-01-23] MEDS: DOXYCYCLINE HYCLATE 100 MG TAB PO SCH ×2 (08:06→20:37)
[2019-01-23] MEDS: PANTOPRAZOLE 40MG TAB (PROTONIX) PO SCH (08:06)
[2019-01-23 08:13] LABS: C REACTIVE PROTEIN QUANTITATIV 5.03 MG/DL (0.00-0.30)
--- NOTE | 2019-01-23 12:13 | IPNPDOC ---
Subjective Date Seen The patient was seen on 01/23/19. Subjective Chief Complaint/HPI Patient seen and examined at the bedside. Reports that he had a relatively uneventful night. States that he did have a bout of night sweats for about 1 hour, but this completely resolved. He reports tolerating a by mouth diet without any complaints, and denies any nausea/vomiting/diarrhea. He states that he has been ambulating in the hallways without any acute issues. Objective Physical Examination General Exam: Positive: Alert, Cooperative, No Acute Distress ENT Exam: Positive: Atraumatic, Mucous membr. moist/pink Neck Exam: Negative: JVD Chest Exam: Positive: Clear to auscultation, Normal air movement Heart Exam: Positive: Rate Normal, Normal S1, Normal S2 Abdomen Exam: Positive: Soft; Negative: Tenderness Extremity Exam: Negative: Tenderness, Swelling Skin Exam: Positive: Rash (generalized maculopapular, non-itchy, not painful r andrey noted on trunk, extremities, arms, and back---this does appear to be significantly improving compared to admission) Psych Exam: Positive: Oriented x 3 Assessment /Plan Plan/VTE VTE Prophylaxis Ordered?: Yes Plan Fevers, Headache, and Neck Pain possibly 2/2 Viral Etiology, Tick borne illness Lumbar Puncture negative for meningitis Blood cultures from admission unrevealing Respiratory panel, Monoscreen,Strep-throat studies negative Lyme Screen, Ehrlichia, Babesia, RMSF, and Arbovirus studies ordered The patient reports he continues to feel better at this time. However the patient was noted to have a elevation of his white blood cell count this morning, in addition, he does endorse that he had an episode of night sweats that lasted about one hour The patient's CRP markers are improved from overnight, and the patient is afebrile this morning Continue doxycycline empirically for now We will consult infectious diseases tomorrow for further evaluation. Generalized Maculopapular Body Rash possibly 2/2 Above This is significantly improved, we will cont to monitor Hx of Dyslipidemia Cont Statin Hx of Insomnia Zolpidem prn DVT Prophylaxis Lovenox SC VS, I&O, 24H, Fishbone Vital Signs/I&O Vital Signs Date Time Temp Pulse Resp B/P (MAP) Pulse Ox O2 Delivery O2 Flow Rate FiO2 01/23/19 06:00 98.2 55 15 105/55 (72) 98 01/21/19 07:45 Room Air I&O- Last 24 Hours up to 6 AM 01/23/19 06:00 Intake Total 3156 ml Output Total 0 ml Balance 3156 ml Laboratory Data 24H LABS Laboratory Tests 2 01/23/19 05:55: Nucleated Red Blood Cells % (auto) 0.0, Anion Gap 6L, Glomerular Filtration Rate > 60.0, Blood Urea Nitrogen 18, Creatinine 0.80, Sodium Level 143, Potassium Level 3.7, Chloride Level 109H, Carbon Dioxide Level 28, Calcium Level 7.9L, Aspartate Amino Transf (AST/SGOT) 11, Alanine Aminotransferase (ALT/SGPT) 45, Alkaline Phosphatase 63, Total Bilirubin 0.2, Total Protein 5.4L, Albumin 2.3L, Magnesium Level 2.0, C-Reactive Protein, Quantitative 5.03H, Albumin/Globulin Ratio 0.74L CBC/BMP Laboratory Tests 01/23/19 05:55 Red Blood Count 3.63 L, Mean Corpuscular Volume 93.9, Mean Corpuscular Hemoglobin 32.0, Mean Corpuscular Hemoglobin Concent 34.0, Red Cell Distribution Width 12.4, Calcium Level 7.9 L, Aspartate Amino Transf (AST/SGOT) 11, Alanine Aminotransferase (ALT/SGPT) 45, Alkaline Phosphatase 63, Total Bilirubin 0.2, Total Protein 5.4 L, Albumin 2.3 L Microbiology Microbiology 01/20/19 Blood Culture - Preliminary, Resulted No Growth after 48 hours. All Specime... 01/20/19 Blood Culture - Preliminary, Resulted No Growth after 48 hours. All Specime... 01/21/19 Gram Stain - Final, Resulted 01/21/19 CSF Culture, Resulted Pending 01/21/19 - Final, Complete 01/21/19 Respiratory Virus Panel (PCR) ([facility]) - Final, Complete 01/20/19 Group A Streptococcus Screen ([facility]) - Final, Complete 01/21/19 Urine Culture - Final, Complete XI PRETTY MD Jan 23, 2019 12:13
[2019-01-23 14:00] VITALS: BP 109/71
[2019-01-23] MEDS: ROSUVASTATIN 10 MG TAB (CRESTOR) PO SCH (20:36)
[2019-01-23] MEDS ORDERED: MOM 30ML SUSPENSION UDC PO ONE (21:00)
[2019-01-23] MEDS ORDERED: guaiFENesin SYRUP 200 MG/10 ML UDC PO PRN (21:00)
[2019-01-23 22:00] VITALS: BP 108/68
[2019-01-24] MEDS: ACETAMINOPHEN TAB 650MG DOSE (2X325MG) PO PRN ×4 (05:16→17:56)
[2019-01-24 06:00] VITALS: BP 110/70
[2019-01-24 06:16] LABS: HEMATOCRIT 37.9 % (42.0-52.0); HEMOGLOBIN 13.1 g/dl (13.5-17.5); MEAN CORPUSCULAR HEMOGLOBIN 31.1 pg (27.0-33.0); MEAN CORPUSCULAR HGB CONC 34.6 g/dl (32.0-36.5); PLATELET COUNT, AUTOMATED 273 10^3/uL (150-450); RED BLOOD COUNT 4.21 10^6/uL (4.30-6.10); WHITE BLOOD COUNT 12.1 10^3/uL (4.0-10.0)
[2019-01-24 06:48] LABS: ALBUMIN 2.7 GM/DL (3.2-5.2); ALT/SGPT 58 U/L (12-78); BILIRUBIN,TOTAL 0.4 MG/DL (0.2-1.0); BLOOD UREA NITROGEN 13 MG/DL (7-18); CARBON DIOXIDE LEVEL 29 MEQ/L (21-32); CHLORIDE LEVEL 105 MEQ/L (98-107); CREATININE FOR GFR 0.81 MG/DL (0.70-1.30); GLOMERULAR FILTRATION RATE > 60.0 (>49); GLUCOSE, FASTING 98 MG/DL (70-100); POTASSIUM SERUM 3.5 MEQ/L (3.5-5.1); SODIUM LEVEL 140 MEQ/L (136-145); TOTAL PROTEIN 6.3 GM/DL (6.4-8.2)
[2019-01-24 08:22] LABS: C REACTIVE PROTEIN QUANTITATIV 3.16 MG/DL (0.00-0.30)
[2019-01-24] MEDS: DOXYCYCLINE HYCLATE 100 MG TAB PO SCH (08:58)
[2019-01-24] MEDS: PANTOPRAZOLE 40MG TAB (PROTONIX) PO SCH (08:58)
[2019-01-24] MEDS: ENOXAPARIN 40 MG/0.4 ML SYRINGE (J1650) SC SCH (08:58)
[2019-01-24 14:00] VITALS: BP 123/72
--- NOTE | 2019-01-24 14:05 | IPNPDOC ---
Subjective Date Seen The patient was seen on 01/24/19. Subjective Chief Complaint/HPI Patient continues to report headaches and generalized malaise this morning. However, he has remained afebrile and his white blood cell count is trending downward. Denies any nausea, vomiting, abdominal pain, or any diarrhea. Objective Physical Examination General Exam: Positive: Alert, Cooperative, No Acute Distress ENT Exam: Positive: Atraumatic, Mucous membr. moist/pink Neck Exam: Negative: JVD Chest Exam: Positive: Clear to auscultation, Normal air movement Heart Exam: Positive: Rate Normal, Normal S1, Normal S2 Abdomen Exam: Positive: Soft; Negative: Tenderness Extremity Exam: Negative: Tenderness, Swelling Skin Exam: Positive: Rash (generalized maculopapular, non-itchy, not painful rash noted on trunk, extremities, arms, and back---this does appear to be significantly improving compared to admission) Psych Exam: Positive: Oriented x 3 Assessment /Plan Plan/VTE VTE Prophylaxis Ordered?: Yes Plan Fevers, Headache, and Neck Pain possibly 2/2 Viral Etiology, Tick borne illness Lumbar Puncture negative for meningitis Blood cultures from admission unrevealing Respiratory panel, Monoscreen,Strep-throat studies negative Lyme Screen, Ehrlichia, Babesia, RMSF, and Arbovirus studies ordered The patient reports he continues to feel better at this time. The patient's CRP markers are improved from overnight, and the patient is afebrile this morning Continue doxycycline empirically for now Infectious diseases consulted for further evaluation---anticipate D/C pending any further ID workup and continued clinical improvement. Generalized Maculopapular Body Rash possibly 2/2 Above This is significantly improved, we will cont to monitor Hx of Dyslipidemia Cont Statin Hx of Insomnia Zolpidem prn DVT Prophylaxis Lovenox SC VS, I&O, 24H, Fishbone Vital Signs/I&O Vital Signs Date Time Temp Pulse Resp B/P (MAP) Pulse Ox O2 Delivery O2 Flow Rate FiO2 01/24/19 06:00 98.0 66 16 110/70 (83) 98 01/21/19 07:45 Room Air I&O- Last 24 Hours up to 6 AM 01/24/19 05:59 Intake Total 2125 ml Output Total 0 ml Balance 2125 ml Laboratory Data 24H LABS Laboratory Tests 2 01/24/19 05:52: Nucleated Red Blood Cells % (auto) 0.0, Anion Gap 6L, Glomerular Filtration Rate > 60.0, Blood Urea Nitrogen 13, Creatinine 0.81, Sodium Level 140, Potassium Level 3.5, Chloride Level 105, Carbon Dioxide Level 29, Calcium Level 8.0L, Aspartate Amino Transf (AST/SGOT) 17, Alanine Aminotransferase (ALT/SGPT) 58, Alkaline Phosphatase 84, Total Bilirubin 0.4#, Total Protein 6.3L, Albumin 2.7L, Magnesium Level 2.0, C-Reactive Protein, Quantitative 3.16H, Albumin/Globulin Ratio 0.75L CBC/BMP Laboratory Tests 01/24/19 05:52 Red Blood Count 4.21 L, Mean Corpuscular Volume 90.0, Mean Corpuscular Hemoglobin 31.1, Mean Corpuscular Hemoglobin Concent 34.6, Red Cell Distribution Width 12.4, Calcium Level 8.0 L, Aspartate Amino Transf (AST/SGOT) 17, Alanine Aminotransferase (ALT/SGPT) 58, Alkaline Phosphatase 84, Total Bilirubin 0.4 #, Total Protein 6.3 L, Albumin 2.7 L Microbiology Microbiology 01/20/19 Blood Culture - Preliminary, Resulted No Growth after 72 hours. All specime... 01/20/19 Blood Culture - Preliminary, Resulted No Growth after 72 hours. All specime... 01/21/19 Gram Stain - Final, Complete 01/21/19 CSF Culture - Final, Complete 01/21/19 - Final, Complete 01/21/19 Respiratory Virus Panel (PCR) ([facility]) - Final, Complete 01/20/19 Group A Streptococcus Screen ([facility]) - Final, Complete 01/21/19 Urine Culture - Final, Complete XI PRETTY MD Jan 24, 2019 14:05
[2019-01-24] MEDS ORDERED: DOXY100T PO (17:49)
--- NOTE | 2019-01-24 17:54 | DS.PDOC ---
Discharge Summary General Date of Admission Jan 20, 2019 at 18:10 Date of Discharge 01/24/19 Specialist/Consultants Involve Dr. Timmons of ICU, Dr. Elder of ID Discharge Summary PROCEDURES PERFORMED DURING STAY: Lumbar Puncture on 01/21/[address] Timmons of ICU ADMITTING/DISCHARGE DIAGNOSES: Fevers, Chills, Myalgia's and Diffuse Maculopapular Rash possibly 2/2 Tick Borne Illness, Viral Etiology COMPLICATIONS/CHIEF COMPLAINT: Intractable Nausea And Vomiting. HISTORY OF PRESENT ILLNESS: . 63-year-old male with past medical history significant for dyslipidemia presented to the ER with a chief complaint of intractable nausea and vomiting over the last 3 days. He states that during this time he has been unable to keep any food down due to the nausea. Denies eating or drinking any foreign foods, sick contacts, or recent travel. He also endorses associated subjective fevers and chills. He also states that he has been working in the [employer], but has done so for many years without incident, and denies noticing any recent tick bites. Also of note, the patient states that he has had a generalized non-itchy non- painful body rash that erupted around the same time. He endorses generalized body aches but denied any headaches or neck aches on admission. Fevers, Headache, and Neck Pain possibly 2/2 Viral Etiology, Tick borne illness Lumbar Puncture negative for meningitis Blood cultures from admission unrevealing Respiratory panel, Monoscreen,Strep-throat studies negative Lyme Screen, Ehrlichia, Babesia, RMSF, West Nile Virus, and Arbovirus studies ordered The patient reports he continues to feel better at this time. The patient's CRP markers are improved from overnight, and the patient is afebrile this morning Infectious diseases input appreciated-->We will D/C the patient on PO Doxycycline and have him follow up as an outpatient for the aforementioned studies. Generalized Maculopapular Body Rash possibly 2/2 Above This is significantly improved, cont to monitor, F/U as outpatient Hx of Dyslipidemia Cont Statin Hx of Insomnia Zolpidem prn DISCHARGE MEDICATIONS: Please see below. ALLERGIES: Please see below. PHYSICAL EXAMINATION ON DISCHARGE: VITAL SIGNS: Please see below. General Exam: Positive: Alert, Cooperative, No Acute Distress ENT Exam: Positive: Atraumatic, Mucous membr. moist/pink Neck Exam: Negative: JVD Chest Exam: Positive: Clear to auscultation, Normal air movement Heart Exam: Positive: Rate Normal, Normal S1, Normal S2 Abdomen Exam: Positive: Soft; Negative: Tenderness Extremity Exam: Negative: Tenderness, Swelling Skin Exam: Positive: Rash (generalized maculopapular, non-itchy, not painful rash noted on trunk, extremities, arms, and back---this does appear to be significantly improving compared to admission) Psych Exam: Positive: Oriented x 3 LABORATORY DATA: Please see below. IMAGING: EXAM: CT Abdomen and Pelvis Without Contrast EXAM DATE/TIME: 01/20/2019 6:10 PM CLINICAL HISTORY: 63 years old, male; Nausea and vomiting; Additional info: Nausea/vomiting TECHNIQUE: Imaging protocol: Axial computed tomography images of the abdomen and pelvis without contrast. Coronal and sagittal reformatted images were created and reviewed. Radiation optimization: All CT scans at this facility use at least one of these dose optimization techniques: automated exposure control; mA and/or kV adjustment per patient size (includes targeted exams where dose is matched to clinical indication); or iterative reconstruction. COMPARISON: No relevant prior studies available. FINDINGS: Lungs: There is bibasilar compressive atelectasis. Liver: There are cysts in the liver measuring up to 2 cm. No complex features demonstrated. Gallbladder and bile ducts: Normal. No calcified stones. No ductal dilation. Pancreas: Normal. No ductal dilation. Spleen: There is mild splenomegaly with a maximum span of 13 centimeters. No focal abnormalities demonstrated. Adrenals: Normal. No mass. Kidneys and ureters: Subcentimeter nonobstructing calculus upper pole left kidney. Peripelvic cysts both kidneys. Mild perinephric inflammatory changes on the left. Clinical correlation to exclude pyelonephritis suggested. Stomach and bowel: Normal. No obstruction. No mucosal thickening. Appendix: No evidence of appendicitis. Intraperitoneal space: Normal. No free air. No significant fluid collection. Vasculature: The aorta demonstrates mild atherosclerotic calcification. Lymph nodes: Normal. No enlarged lymph nodes. Bladder: Unremarkable as visualized. Reproductive: The prostate gland demonstrates moderate hyperplasia. Bones/joints: No acute fracture. No dislocation. Soft tissues: Unremarkable. IMPRESSION: 1. There is mild splenomegaly with a maximum span of 13 centimeters. No focal abnormalities demonstrated. 2. Moderate prostatic hyperplasia. 3. Mild perinephric inflammatory changes on the left. Clinical correlation to exclude pyelonephritis suggested. COMMENT: Consistent with the [employer]'s Incidental Findings Committee Report (J Am Doc Radiol 2010): Unless the patient's specific circumstances suggest otherwise, any liver lesion 0.5 cm or less, any cystic kidney lesion less than 1.0 cm, and/or any adrenal lesion 1.0 cm or less not otherwise characterized in this report as possessing suspicious or indeterminate imaging features is/are highly likely to be benign and do not require follow-up imaging or biopsy. CHEST, SINGLE VIEW: There is no evidence of acute infiltrate. No pleural effusion is seen. The heart is normal in size. The mediastinal silhouette is unremarkable. The visualized osseous structures are intact. IMPRESSION: No acute pulmonary disease. CT HEAD WITHOUT CONTRAST: HISTORY: Headache. There is no intraparenchymal hemorrhage, mass, or midline shift. The ventricular system is normal in appearance. There is no extracerebral collection. The visualized sinuses are clear. IMPRESSION: There is no intracranial lesion. PROGNOSIS: Fair ACTIVITY: As tolerated. DIET: As tolerated DISCHARGE PLAN: DISPOSITION: . Home DISCHARGE INSTRUCTIONS: Follow-up with primary care physician within 7 days. Return to the ER for any acute emergencies. DISCHARGE CONDITION: Stable. TIME SPENT ON DISCHARGE: Greater than 30 minutes. Vital Signs/I&Os Vital Signs Date Time Temp Pulse Resp B/P (MAP) Pulse Ox O2 Delivery O2 Flow Rate FiO2 01/24/19 14:00 98.3 73 18 123/72 (89) 95 01/21/19 07:45 Room Air I&O- Last 24 Hours up to 6 AM 01/24/19 06:00 Intake Total 1750 ml Output Total 0 ml Balance 1750 ml Laboratory Data Labs 24H Laboratory Tests 2 01/24/19 05:52: Nucleated Red Blood Cells % (auto) 0.0, Anion Gap 6L, Glomerular Filtration Rate > 60.0, Blood Urea Nitrogen 13, Creatinine 0.81, Sodium Level 140, Potassium Level 3.5, Chloride Level 105, Carbon Dioxide Level 29, Calcium Level 8.0L, Aspartate Amino Transf (AST/SGOT) 17, Alanine Aminotransferase (ALT/SGPT) 58, Alkaline Phosphatase 84, Total Bilirubin 0.4#, Total Protein 6.3L, Albumin 2.7L, Magnesium Level 2.0, C-Reactive Protein, Quantitative 3.16H, Albumin/Globulin Ratio 0.75L CBC/BMP Laboratory Tests 01/24/19 05:52 Red Blood Count 4.21 L, Mean Corpuscular Volume 90.0, Mean Corpuscular Hemoglobin 31.1, Mean Corpuscular Hemoglobin Concent 34.6, Red Cell Distribution Width 12.4, Calcium Level 8.0 L, Aspartate Amino Transf (AST/SGOT) 17, Alanine Aminotransferase (ALT/SGPT) 58, Alkaline Phosphatase 84, Total Bilirubin 0.4 #, Total Protein 6.3 L, Albumin 2.7 L Microbiology Microbiology 01/20/19 Blood Culture - Preliminary, Resulted No Growth after 72 hours. All specime... 01/20/19 Blood Culture - Preliminary, Resulted No Growth after 72 hours. All specime... 01/21/19 Gram Stain - Final, Complete 01/21/19 CSF Culture - Final, Complete 01/21/19 - Final, Complete 01/21/19 Respiratory Virus Panel (PCR) ([facility]) - Final, Complete 01/20/19 Group A Streptococcus Screen ([facility]) - Final, Complete 01/21/19 Urine Culture - Final, Complete Discharge Medications Scheduled Doxycycline Hyclate (Doxycycline Hyclate) 100 Mg Tablet, 100 MG PO BID Rosuvastatin Calcium (Rosuvastatin Calcium) 20 Mg Tab, 10 MG PO QHS, (Reported) Scheduled PRN Clindamycin Phosphate (Clindagel) 75 Ml Gel.daily, 1 APLCT TOP BID PRN for HEAT RASH, (Reported) APPLY TO LEGS Ibuprofen (Ibuprofen) 400 Mg Tablet, 400 MG PO Q4H PRN for PAIN, (Reported) Zolpidem Tartrate (Zolpidem Tartrate) 5 Mg Tab, 5 MG PO QHS PRN for SLEEP, (Reported) Allergies Coded Allergies: No Known Allergies (Unverified , 10/25/18) XI PRETTY MD Jan 24, 2019 17:54
--- NOTE | 2019-01-25 10:38 | CR ---
DATE OF CONSULTATION: 01/24/2019 I ws asked to consult by Dr. Green for evaluation of a fever in a rash. HISTORY OF PRESENT ILLNESS Mr. Acevedo is a pleasant 63-year-old gentleman who was admitted to the hospital on January 20 after he had been sick for about 3 days prior to admission. It all started with fever, headache and not feeling well with a flu-like illness body aches. 48 hours later he developed nausea and vomiting. His headache got worse. He could he also then developed a rash that started around his neck and spread down to his abdomen and legs. The rash was nonpruritic or erythematous diffuse maculopapular associated with ulcerations of his tongue. He was admitted on 01/20/2019 since he had worsening headache and lumbar puncture was done which was negative for meningitis. He initially was treated with IV Rocephin from 01/20 to 01/22, which was discontinued 48 hours later. He was started on doxycycline for possibly tick-borne illnesses. On 01/22 his temperature was initially 100.1 with a white count of 16,000 today his white count is 12,000, CRP went from 18-3.16. The patient is feeling much better but concerned about the fact that he has a persistent rash. PAST MEDICAL HISTORY: His past medical history is significant for Lyme disease in [address] Cabrera with a Lyme serology of 4.54 and positive Western blot hyperlipidemia on rosuvastatin no recent medication change. PAST SURGICAL HISTORY: Right Achilles tendon repair. SOCIAL HISTORY: He is . He lives with his Emma Andres who is a real estate transaction manager. 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 He had been in [place] last [place]. He lives in [place] in the summer. He walks in the park with his dog and he also hunts. He has been in touch with duck and chicken that he uses for hunting without good hand hygiene. ALLERGIES: NO KNOWN DRUG ALLERGIES. MEDICATIONS: Robitussin as needed, doxycycline 100 mg by mouth twice a day, currently day #3, Lovenox 40 mg subcu daily, Protonix 40 mg by mouth daily, Crestor 10 mg by mouth at bedtime, Tylenol as needed. Chest x-ray done on 01/20 showed no acute pulmonary disease. CT abdomen and pelvis done without contrast was non revealing. There is mild splenomegaly with maximum span of 13 cm. Moderate prostatic hyperplasia and mild perinephric changes to the left side. PET CT shows no intracranial lesions. Blood cultures two sets were negative. Respiratory panel was negative. Urine culture was negative. Group A strep was negative. CSF PCR was negative by a fire CSF culture was negative. CSF white cells 1, glucose 60, total protein 34 Anaplasma, Lyme, paronychia PCR all pending. West Nile serology pending. [place] screen negative, Rickettsia antibody pending. Urinalysis had five white cells five red cells. PT 14.5, PTT 28.9. PHYSICAL EXAMINATION: He is a healthy looking gentleman in no acute distress covered with a rash. Temperature is 98.3, pulse 73 feet, respiratory rate 18, blood pressure 123/72, O2 sat 95% on room air. Neck is supple. No stiffness. No adenopathy. Oropharynx is clear with no lesion. No thrush. No ulcerations. Pupils are equal, round and reactive, anicteric. No conjunctival lesions. Heart: Normal S1-S2. No murmurs, rubs or gallops. Lungs are clear. No wheezes or rhonchi. Abdomen: Soft, nontender. No visceromegaly. Extremities: No clubbing, cyanosis or edema. No calf tenderness. Skin: Has diffuse maculopapular rash from the neck down to the legs some of it is blanching all a lot of it is confluent. There is no vasculitic lesions. Neck is supple with no meningismus. Neurologic: Exam normal. IMPRESSION: This is a an 63-year-old gentleman who was admitted with flu-like illness headache, meningismus negative lumbar puncture for meningitis who has clinically improved after he has been on IV Rocephin and by mouth doxycycline. His presentation is consistent with either a viral illness or tick borne illness, possibly a Lyme disease as he has a positive serology of 3.29, but only 4 out of 10 positive IgG or other coinfections such as a Anaplasma usually would be associated with pancytopenia and not a rash. Other mosquito born illnesses are would be West Nile virus or other viral illnesses. PLAN: Continue with doxycycline. Currently he is day #2 would suggest giving him a 14-day course until he sees me in the office. I agree with current workup including Anaplasma Babesia Ehrlichia PCR I have added also West Nile virus serology IgM and IgG. The patient could be discharged home today and to follow up in my office in 1 week.
[2019-01-26 14:12] LABS: WEST NILE VIRUS ANTIBODY IgG Negative (Negative); WEST NILE VIRUS ANTIBODY IgM Negative (Negative)
[2019-01-27 08:05] LABS: ROCKY MTN SPOTTED FEVER IgM 0.28 index (0.00-0.89)
[2019-02-02 00:06] LABS: BABESIA MICROTI PCR Negative (Negative); Lyme Disease IgG Ab 18 kDa Ban Absent (.); Lyme Disease IgG Ab 23 kDa Ban Absent (.); Lyme Disease IgG Ab 28 kDa Ban Absent (.); Lyme Disease IgG Ab 30 kDa Ban Present (.); Lyme Disease IgG Ab 39 kDa Ban Absent (.); Lyme Disease IgG Ab 41 kDa Ban Present (.); Lyme Disease IgG Ab 45 kDa Ban Present (.); Lyme Disease IgG Ab 58 kDa Ban Absent (.); Lyme Disease IgG Ab 66 kDa Ban Absent (.); Lyme Disease IgG Ab 93 kDa Ban Absent (.); Lyme Disease IgG West Blot Int Negative (.); Lyme Disease IgG/IgM Antibodie 2.77 ISR (0.00-0.90); Lyme Disease IgM Ab 23 kDa Ban Absent (.); Lyme Disease IgM Ab 39 kDa Ban Absent (.); Lyme Disease IgM Ab 41 kDa Ban Absent (.); Lyme Disease IgM Ab Quantitati <0.80 index (0.00-0.79); Lyme Disease IgM West Blot Int Negative (.)
== END 2019-01-24 18:55 | disposition home or self-care (01) | DRG 50 ==
LOC: M ED 14:17 → M ED INP 18:10 → M MSPAV 01-21 09:06
PROVIDERS: ADMIT Internal Medicine; ATTEND Internal Medicine
PROC: 009U3ZX Drainage of Spinal Canal, Percutaneous Approach, Diagnostic (ICD-10-PCS; principal; 2019-01-21)
DX: A84.8 Other tick-borne viral encephalitis (principal); E78.5 Hyperlipidemia, unspecified; R21 Rash and other nonspecific skin eruption; G47.00 Insomnia, unspecified; Z79.899 Other long term (current) drug therapy

== ENCOUNTER → 2019-01-28 | Outpatient (REF) | payer BC ==
[~2019-01-28] MED LIST changes: +CLIN1GEL3 TOP; +DOXY100T PO; +IBUP-1114 PO
[2019-01-28 13:32] LABS: C REACTIVE PROTEIN QUANTITATIV 3.44 MG/DL (0.00-0.30); EOSINOPHILS 12 % (0-5); LYMPHOCYTES 20 % (16-52); MONOCYTES 3 % (0-8); NEUTROPHILS 62 % (35-75)
[2019-01-28 13:33] LABS: PLATELET ESTIMATE NORMAL (NORMAL)
[2019-01-28 13:36] LABS: MONO SCRN NEGATIVE (NEGATIVE)
== END ==
LOC: M LAB REF 12:45
PROVIDERS: ATTEND Internal Medicine
DX: R50.9 Fever, unspecified (principal); R53.81 Other malaise; E86.0 Dehydration

== ENCOUNTER → 2020-04-11 | Outpatient (REF) | payer BC ==
[2020-04-11 18:19] LABS: APPEARANCE, URINE CLEAR (CLEAR); BACTERIA, URINE AUTO NEGATIVE (NEGATIVE); BILIRUBIN, URINE AUTO NEGATIVE (NEGATIVE); BLOOD, URINE BLOOD NEGATIVE (NEGATIVE); COLOR, URINE YELLOW (YELLOW); GLUCOSE, URINE (UA) AUTO NEGATIVE (NEGATIVE); KETONE, URINE AUTO NEGATIVE (NEGATIVE); LEUKOCYTE ESTERASE, URINE AUTO NEGATIVE (NEGATIVE); MUCUS, URINE SMALL (NEGATIVE); NITRITE, URINE AUTO NEGATIVE (NEGATIVE); PROTEIN, URINE AUTO NEGATIVE (NEGATIVE); RBC, URINE AUTO 2 /HPF (0-3); SQUAMOUS EPITHELIAL CELL UR AU 0 /HPF (0-6); UROBILINOGEN, URINE AUTO 0.2 mg/dL (0.0-2.0); WBC, URINE AUTO 1 /HPF (0-3)
== END ==
LOC: M LAB REF 16:46
PROVIDERS: ATTEND Internal Medicine
DX: Z01.818 Encounter for other preprocedural examination (principal)

== ENCOUNTER → 2020-06-11 | Outpatient (REF) | payer BC ==
[2020-06-11 17:27] LABS: APPEARANCE, URINE CLEAR (CLEAR); BACTERIA, URINE AUTO NEGATIVE (NEGATIVE); BILIRUBIN, URINE AUTO NEGATIVE (NEGATIVE); BLOOD, URINE BLOOD NEGATIVE (NEGATIVE); COLOR, URINE STRAW (YELLOW); GLUCOSE, URINE (UA) AUTO NEGATIVE (NEGATIVE); KETONE, URINE AUTO NEGATIVE (NEGATIVE); LEUKOCYTE ESTERASE, URINE AUTO NEGATIVE (NEGATIVE); NITRITE, URINE AUTO NEGATIVE (NEGATIVE); PROTEIN, URINE AUTO NEGATIVE (NEGATIVE); RBC, URINE AUTO 0 /HPF (0-3); SPECIFIC GRAVITY URINE AUTO 1.009 (1.002-1.035); SQUAMOUS EPITHELIAL CELL UR AU 0 /HPF (0-6); UROBILINOGEN, URINE AUTO 0.2 mg/dL (0.0-2.0); WBC, URINE AUTO 1 /HPF (0-3)
[2020-06-11 17:59] LABS: PROSTATIC SPECIFIC AG MONITOR 4.29 NG/ML (< 4.00)
[2020-06-11 18:08] LABS: LUTEINIZING HORMONE 5.4 mIU/mL (1.5-9.3); PROLACTIN 7.7 NG/ML (2.1-17.7)
[2020-06-11 18:10] LABS: ESTRADIOL 22.6 PG/ML (<39.8); FOLLICLE STIMULATING HORMONE 9.1 mIU/mL (1.4-18.1)
[2020-06-11 18:11] LABS: FOLATE 12.3 NG/ML
== END ==
LOC: M LAB REF 16:18
PROVIDERS: ATTEND Internal Medicine
DX: C61 Malignant neoplasm of prostate (principal); R35.8 Other polyuria; Z79.899 Other long term (current) drug therapy; E55.9 Vitamin D deficiency, unspecified

== ENCOUNTER → 2020-09-13 | Outpatient (CLI) | payer BC ==
[~2020-09-13] MED LIST changes: +ECOT81TA5 PO; +SILO8CAP
== END ==
LOC: M LABSMTC 10:02
PROVIDERS: ATTEND Anesthesiology
DX: Z01.812 Encounter for preprocedural laboratory examination (principal)

== ENCOUNTER → 2020-09-18 | Day surgery (SDC) | payer BC ==
[~2020-09-18] VITALS: Ht 193 cm; Wt 101.5 kg
[~2020-09-18] MED LIST changes: +ACETAMINOPHEN 1000MG 100ML IV BTL (OFIRMEV) (J0131 PER 10MG) As Ordered ONE; +BUPIVACAINE/EPIN 0.25% 30 ML VIAL As Ordered ONE; +LIDOCAINE 2% 100MG/5ML SDV (FOR ANES.) As Ordered ONE; +LR 1,000 ML IV ONE; +MIDAZOLAM INJ 2MG/2ML VIAL (J2250 PER 1MG) As Ordered ONE; +ONDANSETRON 4MG/2ML VIAL As Ordered ONE; +ceFAZolin SOD 1 GM in D5W MINI-BAG PLUS 50 ML IV ONE; +fentaNYL 100 MCG/2 ML INJECTION (J3010) As Ordered ONE; +propofoL 200 MG/20 ML VIAL As Ordered ONE
[2020-09-18 09:55] VITALS: BP 104/66
--- NOTE | 2020-09-18 10:49 | RO ---
OPERATIVE NOTE DATE OF OPERATION: 09/18/2020 PREOPERATIVE DIAGNOSIS: Right upper back lipoma. POSTOPERATIVE DIAGNOSIS: Right upper back lipoma, 4 cm (intramuscular). PROCEDURE: Excision of upper back lipoma 4 cm. SURGEON: Harpreet Og Jr, MD INDUSTRIAL SAFETY AND HEALTH TECHNICIAN: ANESTHESIA: IV sedation plus local. EBL: Minimal. FLUIDS: Crystalloid. DESCRIPTION OF PROCEDURE: The patient was brought to the operating room, was given IV sedation, was prepped and draped in usual sterile fashion. Local Lidocaine mixed with Marcaine was infiltrated around the lipoma. A transverse incision was made over the lipoma and combination of blunt and sharp dissection as well as electrocautery was used to cut through dermis and underlying subcutaneous tissue, down to the deeper subcutaneous tissue down through the fascia where muscle-splitting incision was performed. Abutting the ribs in this area was a lipoma that was well circumscribed, dissecting this off surrounding structures using combination of blunt and sharp dissection as well as electrocautery. I was able to remove this in its entirety. After good hemostasis was achieved the muscle layer which was attenuated in this area was closed with 2-0 Vicryl, 3-0 Vicryl was used to approximate dermis, and 4-0 Vicryl was used to approximate skin. Steri-Strips and dry, sterile dressing was applied. The patient was awakened from his sedation and brought to the recovery room awake, alert, hemodynamically stable. Sponge and needle counts correct x2.
== END | disposition home or self-care (01) ==
LOC: M SDC 07:09
PROVIDERS: ATTEND Surgery
DX: D17.1 Benign lipomatous neoplasm of skin and subcutaneous tissue of trunk (principal); C61 Malignant neoplasm of prostate; E78.00 Pure hypercholesterolemia, unspecified; Z92.3 Personal history of irradiation; Z79.82 Long term (current) use of aspirin; Z79.899 Other long term (current) drug therapy
CPT/HCPCS: 21932; 88304; J0131; J0690; J2250; J2405

== ENCOUNTER → 2021-01-28 | Outpatient (REF) | payer BC ==
[~2021-01-28] MED LIST changes: -ACETAMINOPHEN 1000MG 100ML IV BTL (OFIRMEV) (J0131 PER 10MG) As Ordered ONE; -BUPIVACAINE/EPIN 0.25% 30 ML VIAL As Ordered ONE; -LIDOCAINE 2% 100MG/5ML SDV (FOR ANES.) As Ordered ONE; -LR 1,000 ML IV ONE; -MIDAZOLAM INJ 2MG/2ML VIAL (J2250 PER 1MG) As Ordered ONE; -ONDANSETRON 4MG/2ML VIAL As Ordered ONE; -ceFAZolin SOD 1 GM in D5W MINI-BAG PLUS 50 ML IV ONE; -fentaNYL 100 MCG/2 ML INJECTION (J3010) As Ordered ONE; -propofoL 200 MG/20 ML VIAL As Ordered ONE
== END ==
LOC: M LAB REF 11:44
PROVIDERS: ATTEND Internal Medicine
DX: C61 Malignant neoplasm of prostate (principal)

== ENCOUNTER → 2021-04-11 | Outpatient (REF) | payer BC | LOC: M LAB REF 16:42 | PROVIDERS: ATTEND Internal Medicine | DX: R79.82 Elevated C-reactive protein (CRP) (principal); R50.9 Fever, unspecified ==

== ENCOUNTER → 2022-08-06 | Outpatient (REF) | payer BC | LOC: M LAB REF 09:04 | PROVIDERS: ATTEND Internal Medicine | DX: R06.02 Shortness of breath (principal) ==

== ENCOUNTER → 2022-12-17 | Outpatient (REF) | payer BC ==
[~2022-12-17] MED LIST changes: -ROSU20TA5 PO; +ROSU20TA61 PO
[2022-12-17 18:02] LABS: INR 0.9; PROTHROMBIN TIME 12.3 SECONDS (12.5-14.5)
== END ==
LOC: M LAB REF 16:35
PROVIDERS: ATTEND Internal Medicine
DX: M19.012 Primary osteoarthritis, left shoulder (principal)